=== PATIENT | female | born 1985 | race Caucasian/White ===

== ENCOUNTER 2019-08-08 20:45 | Emergency (ER) | payer BC ==
[~2019-08-08] VITALS: Ht 152.4 cm; Wt 48.5 kg
[2019-08-08 20:45] VITALS: BP_SYST 110
--- NOTE | 2019-08-08 20:50 | NUR ---
Patient to ER bed 6 to gown for evaluation. Side rails up.
--- NOTE | 2019-08-08 20:55 | NUR ---
Dr. Enamorado bedside for pt eval
[2019-08-08] MEDS ORDERED: LIDOCAINE 1%, 20 ML MDV 20 ML ONE (21:15)
[2019-08-08] MEDS ORDERED: LIDOCAINE 1% 10 MG/ML, 20 ML MDV INJ ONE (21:15)
--- NOTE | 2019-08-08 21:15 | NUR ---
Pt BIB family to ED seeking evaluation after sustaining a laceration to the left small digit. Reports she cut herself while cutting and avocado 1.5 hours prior to arrival. Her last tetanus was within the past 10 years.
--- NOTE | 2019-08-08 22:00 | NUR ---
Dr. Enamorado bedside for Suturing procedure, well tolerated
--- NOTE | 2019-08-08 22:52 | NUR ---
Note undone in EDM - 08/08/19 at 2300 by EDVIN Patient to be transferred to [facility]. Is being transferred due to higher level of care. Receiving facility has accepting physician and available space. ER physician has signed transfer form. Patient or responsible alliance party has agreed to transfer and signed form. Patient belongings inventoried and will be sent with patient. Copy of nursing notes, lab reports, EKG, Physicians Orders and X-rays to be sent with patient. Report called to Bill at receiving facility. Receiving physician is Dr. Barrios. [facility] ambulance service present
[2019-08-08 22:55] VITALS: BP_SYST 110
--- NOTE | 2019-08-08 22:55 | NUR ---
Patient given written and verbal discharge instructions and verbalizes understanding. ER MD discussed with patient the results and treatment provided. Patient in stable condition. ID arm band removed. Patient educated on pain management and to follow up with PMD. Pain Scale 0/10 Opportunity for questions provided and answered.
== END 2019-08-08 22:55 | disposition home or self-care (01) ==
LOC: SED 20:45
DX: S61.217A Laceration without foreign body of left little finger without damage to nail, initial encounter (principal); X78.8XXA Intentional self-harm by other sharp object, initial encounter; Y93.89 Activity, other specified; Y92.89 Other specified places as the place of occurrence of the external cause; Y99.8 Other external cause status
CPT/HCPCS: 12001; 99282; J2001